=== PATIENT | female | born 1990 | race Caucasian/White ===

== ENCOUNTER 2017-12-30 20:23 | Emergency (ER) | payer MEDICAID ==
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
[2017-12-30] MEDS ORDERED: Acetaminophen 500 MG Tab PO ONE (21:42)
[2017-12-30] MEDS ORDERED: Iopamidol 755 MG/ML 200 ML Multipack Bottle IVPUSH STA (21:48)
[2017-12-30 22:21] LABS: CHLORIDE,CL 104 mmol/L (98-107); SODIUM,NA 137 mmol/L (136-145)
[2017-12-30] MEDS ORDERED: Cyclobenzaprine 10 MG Tab PO ONE (22:31)
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
== END 2017-12-30 22:33 | disposition other institution (70) ==
LOC: MW.ED 20:23
DX: S20.212A Contusion of left front wall of thorax, initial encounter (principal); S20.211A Contusion of right front wall of thorax, initial encounter; M54.9 Dorsalgia, unspecified; V49.50XA Passenger injured in collision with unspecified motor vehicles in traffic accident, initial encounter
CPT/HCPCS: 36415; 71111; 72040; 72070; 73070; 74177; 80048; 81025; 85025; 99283; A9270; Q9967